=== PATIENT | male | born 1960 | race Caucasian/White ===

== ENCOUNTER 2022-10-12 15:21 | Emergency (ER) | payer OTHER ==
[~2022-10-12] VITALS: Ht 170 cm; Wt 83.0 kg
--- NOTE | 2022-10-12 15:34 | ED General ---
General Chief Complaint: Glucose Problems Stated Complaint: LOW BLOOD SUGAR/TOOK WRONG MEDICINE Source of Information: Patient Exam Limitations: No Limitations (JEMMA YARBROUGH) History of Present Illness Date Seen by Provider: Oct 12, 2022 Time Seen by Provider: 15:32 Initial Comments Patient is a 62-year-old male who presents the ED for concern for taking the wrong medication. Patient states 45 minutes ago he took his fast acting insulin. Was attempting to take his long-acting. States he was getting ready to eat. States he started drinking syrup. States his blood sugar was 170 right after taking the insulin. States his glucometer read 99 right before arrival. Patient took 30 units of his fast acting. Denies of any current complaints at this time. Type I diabetic with a history of hypertension. Denies headache, dizziness, vomiting, weakness, tremoring. (JEMMA YARBROUGH) Allergies and Home Medications Allergies Coded Allergies: No Known Drug Allergies (Unverified , 10/12/22) Patient Home Medication List Home Medication List Reviewed: Yes (JEMMA YARBROUGH) Review of Systems Review of Systems Constitutional: No chills, No diaphoresis, No malaise, No weakness EENTM: No hearing loss, No blurred vision, No double vision Respiratory: No cough, No dyspnea on exertion Cardiovascular: No chest pain Gastrointestinal: No abdominal pain, No diarrhea, No nausea, No vomiting Genitourinary: No decreased output, No discharge Musculoskeletal: No back pain, No joint pain Skin: No change in color, No change in hair/nails (JEMMA YARBROUGH) All Other Systems Reviewed Negative Unless Noted: Yes (JEMMA YARBROUGH) Physical Exam Vital Signs Vital Signs - First Documented 10/12/22 15:29 Temp 36.5 Pulse 70 Resp 18 B/P (MAP) 129/67 (87) Pulse Ox 96 O2 Delivery Room Air (UMAIR OLIVA MD) Vital Signs Capillary Refill : (JEMMA YARBROUGH) Height, Weight, BMI Height: '" Weight: lbs. oz. kg; BMI Method: General Appearance: No Apparent Distress, WD/WN Eyes: Bilateral Eye Normal Inspection, Bilateral Eye PERRL, Bilateral Eye EOMI HEENT: PERRL/EOMI, TMs Normal, Normal ENT Inspection, Pharynx Normal Neck: Full Range of Motion, Normal Inspection, Non Tender, Supple Respiratory: Chest Non Tender, Lungs Clear, Normal Breath Sounds, No Accessory Muscle Use, No Respiratory Distress Cardiovascular: Regular Rate, Rhythm, No Edema, No Gallop, No JVD, No Murmur Gastrointestinal: Normal Bowel Sounds, No Organomegaly, No Pulsatile Mass, Non Tender Rectal: Normal Exam, Normal Rectal Tone Extremity: Normal Capillary Refill, Normal Inspection, Normal Range of Motion, Non Tender Neurologic/Psychiatric: Alert, Oriented x3, No Motor/Sensory Deficits, Normal Mood/Affect, field marketing manager II-XII Norm as Tested Skin: Normal Color, Warm/Dry (JEMMA YARBROUGH) Progress/Results/Core Measures Suspected Sepsis SIRS Temperature: Pulse: Respiratory Rate: Laboratory Tests 10/12/22 15:34: White Blood Count 9.4 Blood Pressure / Mean: Laboratory Tests 10/12/22 15:34: Creatinine 1.31H, Platelet Count 250, Total Bilirubin 0.7 (JEMMA YARBROUGH) Results/Orders Lab Results Laboratory Tests Test 10/12/22 15:33 10/12/22 15:34 10/12/22 16:09 10/12/22 16:50 Range/Units Glucometer 79 248 H 161 H 70-110 MG/DL White Blood Count 9.4 4.3-11.0 10^3/uL Red Blood Count 4.96 4.30-5.52 10^6/uL Hemoglobin 14.8 13.3-17.7 g/dL Hematocrit 42 40-54 % Mean Corpuscular Volume 85 80-99 fL Mean Corpuscular Hemoglobin 30 25-34 pg Mean Corpuscular Hemoglobin Concent 35 32-36 g/dL Red Cell Distribution Width 11.9 10.0-14.5 % Platelet Count 250 130-400 10^3/uL Mean Platelet Volume 9.8 9.0-12.2 fL Immature Granulocyte % (Auto) 0 % Neutrophils (%) (Auto) 64 42-75 % Lymphocytes (%) (Auto) 23 12-44 % Monocytes (%) (Auto) 6 0-12 % Eosinophils (%) (Auto) 5 0-10 % Basophils (%) (Auto) 1 0-10 % Neutrophils # (Auto) 6.1 1.8-7.8 10^3/uL Lymphocytes # (Auto) 2.2 1.0-4.0 10^3/uL Monocytes # (Auto) 0.6 0.0-1.0 10^3/uL Eosinophils # (Auto) 0.5 H 0.0-0.3 10^3/uL Basophils # (Auto) 0.1 0.0-0.1 10^3/uL Immature Granulocyte # (Auto) 0.0 0.0-0.1 10^3/uL Sodium Level 139 135-145 MMOL/L Potassium Level 3.8 3.6-5.0 MMOL/L Chloride Level 107 98-107 MMOL/L Carbon Dioxide Level 24 21-32 MMOL/L Anion Gap 8 5-14 MMOL/L Blood Urea Nitrogen 20 H 7-18 MG/DL Creatinine 1.31 H 0.60-1.30 MG/DL Estimat Glomerular Filtration Rate 62 BUN/Creatinine Ratio 15 Glucose Level 88 70-105 MG/DL Calcium Level 9.3 8.5-10.1 MG/DL Corrected Calcium 9.4 8.5-10.1 MG/DL Total Bilirubin 0.7 0.1-1.0 MG/DL Aspartate Amino Transf (AST/SGOT) 18 5-34 U/L Alanine Aminotransferase (ALT/SGPT) 20 0-55 U/L Alkaline Phosphatase 24 L 40-136 U/L Total Protein 7.1 6.4-8.2 GM/DL Albumin 3.9 3.2-4.5 GM/DL (UMAIR OLIVA MD) Medications Given in ED Current Medications Medications Dose Ordered Sig/Peterson Route Start Time Stop Time Status Last Admin Dose Admin Dextrose 25 ml ONCE ONCE IV 10/12/22 15:45 10/12/22 15:46 DC 10/12/22 15:37 25 ML (UMAIR OLIVA MD) Vital Signs/I&O 10/12/22 10/12/22 15:29 17:36 Temp 36.5 36.5 Pulse 70 69 Resp 18 18 B/P (MAP) 129/67 (87) 136/66 Pulse Ox 96 96 O2 Delivery Room Air Room Air (UMAIR OLIVA MD) Vital Signs/I&O Capillary Refill : (JEMMA YARBROUGH) Departure Communication (PCP) History of type 1 diabetes presents to ED for concern for taking too much of his regular insulin. Patient took 30 units of regular in the about 45 minutes before arrival. Started drinking syrup and ate a cinnamon roll. Blood sugar was 170 at that time. He was trying to take his long-acting insulin. On arrival no current complaints. Blood sugar 79. Patient Was given half of D50. CBC, CMP was ordered. CBC, CMP grossly unremarkable besides blood sugar 88, creatinine 1.31, GFR 62, BUN of 20. Acute kidney insufficiency. Continue monitoring outpatient. Patient glucometer read around 100. Patient has a [employer] kasandra which connects to his cell phone. patient did not eat at bedside as he stated he felt full. Patient slept most of his visit. After receiving half of D50 patient blood sugar read as high as 248. This leveled out around 150-1 60. His glucometer read about the same right before discharge. Patient states he feels okay to be discharged. Continue monitoring blood sugar with glucometer. Return precaution were discussed. (JEMMA YARBROUGH) Impression Primary Impression: Blood glucose abnormal Disposition: 01 HOME, SELF-CARE Condition: Stable Departure-Patient Inst. Decision time for Depature: 17:00 (JEMMA YARBROUGH) Referrals: [facility],LOCAL PHYSICIAN (PCP) Primary Care Physician Patient Instructions: Low Blood Sugar in People With Diabetes Add. Discharge Instructions: Continue monitoring blood sugar. If any change in symptoms return back to ED All discharge instructions reviewed with patient and/or family. Voiced understanding. ATTENDING PHYSICIAN NOTE: I was physically present as attending physician in the emergency department during the care of this patient, but I was not directly involved in the decision making or delivery of care for this patient. (UMAIR OLIVA MD) JEMMA YARBROUGH Oct 12, 2022 15:34 UMAIR OLIVA MD Oct 12, 2022 21:43
[2022-10-12 15:40] LABS: BASOPHILS # (AUTO) 0.1 10^3/uL (0.0-0.1); BASOPHILS % (AUTO) 1 % (0-10); EOSINOPHILS # (AUTO) 0.5 10^3/uL (0.0-0.3); EOSINOPHILS % (AUTO) 5 % (0-10); HEMATOCRIT 42 % (40-54); HEMOGLOBIN 14.8 g/dL (13.3-17.7); LYMPHOCYTES # (AUTO) 2.2 10^3/uL (1.0-4.0); LYMPHOCYTES % (AUTO) 23 % (12-44); MEAN CORPUSCULAR HEMOGLOBIN 30 pg (25-34); MEAN CORPUSCULAR HGB CONC 35 g/dL (32-36); MEAN CORPUSCULAR VOLUME 85 fL (80-99); MEAN PLATELET VOLUME 9.8 fL (9.0-12.2); MONOCYTES # (AUTO) 0.6 10^3/uL (0.0-1.0); MONOCYTES % (AUTO) 6 % (0-12); NEUTROPHILS # (AUTO) 6.1 10^3/uL (1.8-7.8); NEUTROPHILS % (AUTO) 64 % (42-75); PLATELET COUNT 250 10^3/uL (130-400); WHITE BLOOD COUNT 9.4 10^3/uL (4.3-11.0)
[2022-10-12] MEDS ORDERED: DEXTROSE 50% 50 ML (IMS) SYR IV ONE (15:45)
[2022-10-12 15:48] LABS: ALBUMIN 3.9 GM/DL (3.2-4.5); POTASSIUM 3.8 MMOL/L (3.6-5.0)
[2022-10-12 15:49] LABS: CALCIUM 9.3 MG/DL (8.5-10.1)
[2022-10-12 15:50] LABS: TOTAL PROTEIN 7.1 GM/DL (6.4-8.2)
[2022-10-12 15:52] LABS: BILIRUBIN,TOTAL 0.7 MG/DL (0.1-1.0)
[2022-10-12 15:54] LABS: CREATININE SERUM 1.31 MG/DL (0.60-1.30)
[2022-10-12 17:36] VITALS: BP 136/66
== END 2022-10-12 17:36 | disposition home or self-care (01) ==
LOC: ER 15:26
DX: E10.65 Type 1 diabetes mellitus with hyperglycemia (principal); N28.9 Disorder of kidney and ureter, unspecified
CPT/HCPCS: 36415; 80053; 82947; 85025